=== PATIENT | male | born 1935 | race Caucasian/White ===

== ENCOUNTER → 2019-03-05 | Outpatient (CLI) | payer MEDICARE ==
[2019-03-05 10:09] LABS: HEMATOCRIT 34.7 % (37.9-51.0); HEMOGLOBIN 11.8 g/dL (13.5-17.0); MEAN CORPUSCULAR HEMOGLOBIN 31.5 pg (27.0-33.4); MEAN CORPUSCULAR HGB CONC 33.9 g/dL (32.0-36.0); MEAN CORPUSCULAR VOLUME 93 fl (80-97); PLATELET COUNT 219 10^3/uL (150-450); RED BLOOD COUNT 3.74 10^6/uL (4.35-5.55); RED CELL DISTRIBUTION WIDTH 14.1 % (11.5-14.0); WHITE BLOOD COUNT 6.8 10^3/uL (4.0-10.5)
[2019-03-05 10:10] LABS: APPEARANCE,URINE CLEAR; BILIRUBIN,URINE NEGATIVE (NEGATIVE); COLOR,URINE YELLOW; GLUCOSE, URINE NEGATIVE (NEGATIVE); KETONES,URINE NEGATIVE (NEGATIVE); LEUKOCYTE ESTERASE,URINE NEGATIVE (NEGATIVE); NITRITE,URINE NEGATIVE (NEGATIVE); PROTEIN,URINE NEGATIVE (NEGATIVE); URINE SPECIFIC GRAVITY 1.013; UROBILINOGEN,URINE NEGATIVE mg/dL (<2.0)
[2019-03-05 10:34] LABS: ANION GAP 6 (5-19); BLOOD UREA NITROGEN 21 mg/dL (7-20); CALCIUM 9.2 mg/dL (8.4-10.2); CARBON DIOXIDE 28 mmol/L (22-30); CHLORIDE 105 mmol/L (98-107); GLUCOSE 88 mg/dL (75-110); POTASSIUM 4.6 mmol/L (3.6-5.0); SODIUM 138.8 mmol/L (137-145)
== END ==
LOC: OD 09:05
PROVIDERS: ATTEND Physician Assistant Medical
DX: N18.3 Chronic kidney disease, stage 3 (moderate) (principal); D63.1 Anemia in chronic kidney disease
CPT/HCPCS: 36415; 80048; 81001; 85027

== ENCOUNTER 2019-07-15 07:32 | Day surgery (SDC) | payer MEDICARE ==
[~2019-07-15 07:32] MED LIST: DIPHENHYDRAMINE HCL 50 MG/ML VIAL ONE; EPINEPHRINE INJ 1 MG/10 ML DISP.SYRIN ONE; FENTANYL CITRATE INJ/PF 100 MCG/2 ML AMPUL ONE; FLUMAZENIL INJ 0.5 MG/5 ML VIAL ONE; GLUCAGON,HUMAN RECOMB 1 MG INJ ONE; MIDAZOLAM 2 MG/2 ML INJ ONE; NALOXONE HCL INJ/PF 0.4 MG/1 ML SDV ONE; ONDANSETRON HCL INJ/PF 4 MG/2 ML SDV ONE
--- NOTE | 2019-07-15 08:17 | Operative Report ---
Operative Report DATE OF SURGERY: 07/15/19 Operative Report: The risks benefits and alternatives of the procedure explained to the patient in detail and informed consent is obtained.A GIF Olympus video scope was inserted into the patient's mouth and hypopharynx, the esophagus is identified intubated and insufflated ,the scope was then advanced through the esophagus stomach and duodenum, retroflexion maneuver is done, the esophagus stomach and first and second portions of the duodenum examined. PREOPERATIVE DIAGNOSIS: Dysphagia POSTOPERATIVE DIAGNOSIS: Esophagitis versus Prakash's status post biopsy. Breakage for mild Schatzki's ring. Gastritis status post biopsy. Duodenitis OPERATION: EGD with biopsy SURGEON: IVÁN RAO ANESTHESIA: LMAC TISSUE REMOVED OR ALTERED: As noted above. COMPLICATIONS: None. ESTIMATED BLOOD LOSS: None. INTRAOPERATIVE FINDINGS: As noted above. PROCEDURE: Patient tolerated the procedure well. No immediate postprocedure complications are noted. Patient is discharged in good condition. Discharge date 07/15/2019 Discharge diet: Regular. Discharge activity: Regular. 2 to 3-week follow-up to discuss findings. Patient is instructed to call the office or proceed to the emergency room should there be any further problems or questions. Wait on the pathology.
[2019-07-15 09:30] VITALS: BP 126/79
== END 2019-07-15 09:20 | disposition home or self-care (01) ==
LOC: END 07:32
PROVIDERS: ATTEND Internal Medicine Gastroenterology
DX: K22.2 Esophageal obstruction (principal); K20.9 Esophagitis, unspecified; K29.50 Unspecified chronic gastritis without bleeding; K29.80 Duodenitis without bleeding; F17.210 Nicotine dependence, cigarettes, uncomplicated
CPT/HCPCS: 43239; 88305 ×2; J2250; J3010; J0171; J1200; J1610; J2310; J2405; J3490

== ENCOUNTER 2019-07-24 19:43 | Emergency (ER) | payer MEDICARE ==
--- NOTE | 2019-07-24 20:59 | ER Document Report ---
ED Medical Screen (RME) - General Chief Complaint: Fall Injury Stated Complaint: FALL-RIB PAIN Time Seen by Provider: 07/24/19 20:43 Primary Care Provider: BILL CAIN PA-C [Primary Care Provider] - Follow up as needed Notes: Healthy 83-year-old male presents the emergency department after a fall down 3 steps at home this morning. Patient states that he missed the first step and bounced down the remaining steps on his left side. Patient states that he tried to take an Aleve for it with no relief. Patient states that he could not tolerate the pain anymore so he decided to seek emergency care. Patient denies striking his head or losing consciousness. He is not on anticoagulation. Patient is chiefly complaining about right posterior lower rib pain. Exam: Abdominal exam limited with patient in wheelchair but patient does have tenderness to palpation, abdomen is soft, patient also with acute tenderness to light palpation in the right flank area I have greeted and performed a rapid initial assessment of this patient. A comprehensive ED assessment and evaluation of the patient, analysis of test results and completion of medical decision making process will be conducted by an additional ED providers. TRAVEL OUTSIDE OF THE [place] IN LAST 30 DAYS: No - Related Data Allergies/Adverse Reactions: Penicillins Allergy (Intermediate, Verified 10/28/15 09:58) rash/breathing Past Medical History - Social History Frequency of alcohol use: None Drug Abuse: None - Past Medical History Cardiac Medical History: Denies: Hx Coronary Artery Disease, Hx Heart Attack, Hx Hypertension Pulmonary Medical History: Reports: Hx COPD - PATIENT STATES HE HASNT BEEN DIAGNOSED Denies: Hx Asthma, Hx Bronchitis, Hx Pneumonia Neurological Medical History: Denies: Hx Cerebrovascular Accident, Hx Seizures Malignancy Medical History: Reports Hx Skin Cancer Musculoskeltal Medical History: Denies Hx Arthritis Past Surgical History: Reports: Hx Appendectomy, Hx Oral Surgery - Oral cancer. Denies: Hx Pacemaker - Immunizations Hx Diphtheria, Pertussis, Tetanus Vaccination: No Physical Exam - Vital signs Vitals: Temp Pulse Resp BP Pulse Ox 97.4 F 62 20 129/49 H 99 07/24/19 19:54 07/24/19 19:54 07/24/19 19:54 07/24/19 19:54 07/24/19 19:54 Course - Vital Signs Vital signs: Temp Pulse Resp BP Pulse Ox 97.4 F 62 20 129/49 H 99 07/24/19 19:54 07/24/19 19:54 07/24/19 19:54 07/24/19 19:54 07/24/19 19:54 Doctor's Discharge - Discharge Referrals: BILL CAIN PA-C [Primary Care Provider] - Follow up as needed
[2019-07-24 21:39] LABS: ABSOLUTE BASOPHILS # (AUTO) 0.1 10^3/uL (0.0-0.2); ABSOLUTE EOSINOPHILS # (AUTO) 0.2 10^3/uL (0.0-0.6); ABSOLUTE LYMPHOCYTES (AUTO) 1.8 10^3/uL (0.5-4.7); ABSOLUTE MONOCYTES (AUTO) 0.7 10^3/uL (0.1-1.4); ABSOLUTE NEUT (AUTO) 4.2 10^3/uL (1.7-8.2); HEMATOCRIT 33.7 % (37.9-51.0); HEMOGLOBIN 11.3 g/dL (13.5-17.0); LYMPHOCYTES % (AUTO) 25.8 % (13-45); MEAN CORPUSCULAR HEMOGLOBIN 30.8 pg (27.0-33.4); MEAN CORPUSCULAR HGB CONC 33.6 g/dL (32.0-36.0); MEAN CORPUSCULAR VOLUME 92 fl (80-97); MONOCYTES % (AUTO) 9.9 % (3-13); PLATELET COUNT 227 10^3/uL (150-450); RED BLOOD COUNT 3.67 10^6/uL (4.35-5.55); RED CELL DISTRIBUTION WIDTH 14.7 % (11.5-14.0); SEGMENTED NEUTROPHILS % (AUTO) 60.3 % (42-78); TOTAL CELLS COUNTED % (AUTO) 100 %; WHITE BLOOD COUNT 6.9 10^3/uL (4.0-10.5)
[2019-07-24 21:51] LABS: ALBUMIN 3.5 g/dL (3.5-5.0); ALKALINE PHOSPHATASE 66 U/L (38-126); ANION GAP 9 (5-19); ASPARTATE AMINO TRANSFERASE 14 U/L (17-59); BILIRUBIN,DIRECT 0.3 mg/dL (0.0-0.4); BILIRUBIN,TOTAL 0.4 mg/dL (0.2-1.3); BLOOD UREA NITROGEN 31 mg/dL (7-20); CARBON DIOXIDE 25 mmol/L (22-30); CHLORIDE 104 mmol/L (98-107); GLUCOSE 95 mg/dL (75-110); POTASSIUM 4.9 mmol/L (3.6-5.0); TOTAL PROTEIN 6.7 g/dL (6.3-8.2)
[2019-07-24] MEDS ORDERED: HYDROCODONE/ACETAMINOPHEN 5-325 MG TABLET PO ONE (23:07)
--- NOTE | 2019-07-24 23:49 | RADIOLOGY REPORT (SQ) ---
EXAM DESCRIPTION: CT CHEST WITHOUT IV CONTRAST COMPLETED DATE/TME: 07/24/2019 23:05 CLINICAL HISTORY: 83 years, Male, Fall/trauma COMPARISON: 10/24/2015 CT TECHNIQUE: 322 Images stored on PACS. All CT scanners at this facility use dose modulation, iterative reconstruction, and/or weight based dosing when appropriate to reduce radiation dose to as low as reasonably achievable (ALARA). [facility]: Dose Right [facility]: CareDose [facility]: Dose Right [facility]: Teradose 4D [facility]: [employer] LIMITATIONS: None. FINDINGS: Evaluation of the mediastinum and hilum is limited due to lack of IV contrast. No convincing evidence for mediastinal or hilar adenopathy. Nonenlarged mediastinal lymph nodes. Minimal coronary artery catheterization. The heart and pericardium are otherwise unremarkable. Limited evaluation of the upper abdomen shows partially exophytic left renal cysts. Postcholecystectomy changes. Osseous structures of the thorax are grossly intact with attention given to the right ribs. No pneumothorax. The airways are patent. Minimal reticulonodular changes and minor bronchial wall thickening in the lung bases bilaterally suggesting small airway inflammation/infection. This appears unchanged. IMPRESSION: Reticulonodular changes in the lung bases bilaterally suggesting small airway inflammation/infection. Findings are chronic and were present previously. TECHNICAL DOCUMENTATION: Quality ID # 436: Final reports with documentation of one or more dose reduction techniques (e.g., Automated exposure control, adjustment of the mA and/or kV according to patient size, use of iterative reconstruction technique) copyright 2011 [employer]- All Rights Reserved
--- NOTE | 2019-07-25 01:56 | ER Document Report ---
ED Fall - General Chief Complaint: Fall Injury Stated Complaint: FALL-RIB PAIN Time Seen by Provider: 07/24/19 20:43 Primary Care Provider: BILL CAIN PA-C [Primary Care Provider] - Follow up as needed Mode of Arrival: Ambulatory Information source: Patient Notes: This 83-year-old male presents to the emergency department with a history of a fall at home earlier today. He complains of pain in the left rib cage. He denies head injury or other associated injuries. He is alert and talkative and in no acute distress. TRAVEL OUTSIDE OF THE [place] IN LAST 30 DAYS: No - Related data Allergies/Adverse Reactions: Penicillins Allergy (Intermediate, Verified 10/28/15 09:58) rash/breathing Past Medical History - Social History Smoking Status: Current Every Day Smoker Frequency of alcohol use: None Drug Abuse: None Family History: None Patient has suicidal ideation: No Patient has homicidal ideation: No - Past Medical History Cardiac Medical History: Denies: Hx Coronary Artery Disease, Hx Heart Attack, Hx Hypertension Pulmonary Medical History: Reports: Hx COPD - PATIENT STATES HE HASNT BEEN DIAGNOSED Denies: Hx Asthma, Hx Bronchitis, Hx Pneumonia Neurological Medical History: Denies: Hx Cerebrovascular Accident, Hx Seizures Malignancy Medical History: Reports Hx Skin Cancer Musculoskeletal Medical History: Denies Hx Arthritis Past Surgical History: Reports: Hx Appendectomy, Hx Oral Surgery - Oral cancer. Denies: Hx Pacemaker - Immunizations Hx Diphtheria, Pertussis, Tetanus Vaccination: No Review of Systems - Review of Systems Notes: REVIEW OF SYSTEMS GENERAL: Negative for any nausea, vomiting, fevers, chills, or weight loss. NEUROLOGIC: Negative for any blurry vision, blind spots, double vision, facial asymmetry, dysphagia, dysarthria, hemiparesis, hemisensory deficits, vertigo, ataxia. HEENT: Negative for any head trauma, neck trauma, neck stiffness, photophobia, phonophobia, sinusitis, rhinitis. CARDIAC: Negative for any chest pain, dyspnea on exertion, paroxysmal nocturnal dyspnea, peripheral edema. PULMONARY: +rt chest wall tenderness GASTROINTESTINAL: Negative for any abdominal pain, nausea, vomiting, bright red blood per rectum, melena. GENITOURINARY: Negative for any dysuria, hematuria, incontinence. INTEGUMENTARY: Negative for any rashes, cuts, insect bites. RHEUMATOLOGIC: Negative for any joint pains, photosensitive rashes, history of vasculitis or kidney problems. HEMATOLOGIC: Negative for any abnormal bruising, frequent infections or bleeding. Physical Exam - Vital signs Vitals: Temp Pulse Resp BP Pulse Ox 97.4 F 62 20 129/49 H 99 07/24/19 19:54 07/24/19 19:54 07/24/19 19:54 07/24/19 19:54 07/24/19 19:54 - Notes Notes: Reviewed vital signs and nursing note as charted by RN. CONSTITUTIONAL: Alert and responsive frail elderly male in no acute distress HEAD: Normocephalic; atraumatic; No swelling EYES: PERRL; Conjunctivae clear, no drainage; EOMI ENT: External ears without lesions; External auditory canal is patent; TMs without erythema, landmarks clear and well visualized; no rhinorrhea; Pharynx without erythema or lesions, no tonsillar hypertrophy, airway patent, mucous membranes pink and moist NECK: Supple, no cervical lymphadenopathy, no masses CARD: Regular rate and rhythm; no murmurs, no rubs, no gallops, capillary refill < 2 seconds, symmetric pulses RESP: Respiratory rate and effort are normal. Tenderness at the right lateral rib cage, no crepitus, no step-off, good air movement l flaring, no accessory muscle use. The lungs are clear to auscultation bilaterally, no wheezing, no rales, no rhonchi. ABD/GI: Normal bowel sounds; non-distended; soft, non-tender, no rebound, no guarding, no palpable organomegaly EXT: Normal ROM in all joints; non-tender to palpation; no effusions, no edema SKIN: Normal color for age and race; warm; dry; good turgor; no acute lesions noted NEURO: GCS 15, no facial asymmetry; Moves all extremities equally; Motor and sensory function intact Course - Re-evaluation Re-evalutation: Differential diagnosis: Soft tissue contusion, rib cage contusion, fractured ribs, pneumothorax. 07/25/19 02:05 Patient is doing much better after dose pain medication, CT scan did not reveal a fracture or pneumothorax. I explained to him that he may have a contusion to the rib cage and will treat with Biofreeze, Tylenol, ibuprofen. He will be given a prescription for tramadol 50 mg, 10 tablets have asked him to use them sparingly. He will follow-up with his primary care doctor if needed. The patient and his significant other are in agreement with this plan. 07/25/19 02:06 - Vital Signs Vital signs: Temp Pulse Resp BP Pulse Ox 97.4 F 62 20 129/49 H 99 07/24/19 19:54 07/24/19 19:54 07/24/19 19:54 07/24/19 19:54 07/24/19 19:54 - Laboratory Result Diagrams: 07/24/19 21:15 07/24/19 21:15 Laboratory results interpreted by me: 07/24/19 07/24/19 21:15 21:15 RBC 3.67 L Hgb 11.3 L Hct 33.7 L RDW 14.7 H BUN 31 H Creatinine 1.66 H Est GFR ( Amer) 48 L Est GFR (MDRD) Non-Af 40 L AST 14 L 07/25/19 02:05 I have reviewed laboratory data and used this information and the treatment decisions regarding the patient. - Diagnostic Test Radiology reviewed: Image reviewed, Reports reviewed Radiology results interpreted by me: 07/25/19 02:07 CT scan of the chest: No pneumothorax, no fracture rib. Discharge - Discharge Clinical Impression: Contusion of chest wall with intact skin, Fall Condition: Good Disposition: HOME, SELF-CARE Instructions: Rib Contusion ([facility]) Additional Instructions: Use Biofreeze, Tylenol, and or ibuprofen for pain management. Follow-up with your primary care doctor on Saturday if needed. Prescriptions: Tramadol HCl [Ultram 50 mg Tablet] 50 mg PO Q4HP PRN #10 tab PRN Reason: Referrals: BILL CAIN PA-C [Primary Care Provider] - Follow up as needed
[2019-07-25 02:25] VITALS: BP 128/54
== END 2019-07-25 02:29 | disposition home or self-care (01) ==
LOC: ER 19:43
DX: S20.219A Contusion of unspecified front wall of thorax, initial encounter (principal); R07.81 Pleurodynia; W10.9XXA Fall (on) (from) unspecified stairs and steps, initial encounter; Y92.009 Unspecified place in unspecified non-institutional (private) residence as the place of occurrence of the external cause; F17.200 Nicotine dependence, unspecified, uncomplicated; Z88.0 Allergy status to penicillin
CPT/HCPCS: 36415; 85025; 80053; 71250; A9270; 99284

== ENCOUNTER 2020-07-13 10:19 | Inpatient (IN) | payer MEDICARE, MEDICAID ==
[2020-07-13] MEDS ORDERED: NORMAL SALINE 1000 ML 1,000 ML IV ONE (11:39)
[2020-07-13] MEDS ORDERED: MORPHINE SULFATE 10 MG/ML INJ IV ONE (11:39)
[2020-07-13] MEDS ORDERED: ONDANSETRON HCL INJ/PF 4 MG/2 ML SDV IV ONE (11:39)
--- NOTE | 2020-07-13 11:48 | ER Document Report ---
ED General - General Chief Complaint: Upper Abdominal Pain Stated Complaint: STOMACH PAIN Time Seen by Provider: 07/13/20 10:44 Primary Care Provider: SONALI PANIAGUA MD [NO LOCAL MD] - Follow up tomorrow Mode of Arrival: Ambulatory Information source: Patient TRAVEL OUTSIDE OF THE [place] IN LAST 30 DAYS: No - HPI Notes: Patient complains of mid abdominal pain that goes to his back. He says been it for 3 days. She is had some nausea but no vomiting. No trouble stools or urine. He states he was referred here by a physician but does not remember the physician's name. Patient denies any fevers. No cough cold sweats or chills. Patient states the pain is constant. With makes better or worse. It is sharp and he has been unable to sleep. - Related Data Allergies/Adverse Reactions: Penicillins Allergy (Intermediate, Verified 07/13/20 10:45) rash/breathing Home Medications: denies Past Medical History - General Information source: Patient - Social History Smoking Status: Current Every Day Smoker Chew tobacco use (# tins/day): No Frequency of alcohol use: Occasional Drug Abuse: None Family History: None Patient has homicidal ideation: No - Past Medical History Cardiac Medical History: Denies: Hx Coronary Artery Disease, Hx Heart Attack, Hx Hypertension Pulmonary Medical History: Reports: Hx COPD - PATIENT STATES HE HASNT BEEN DIAGNOSED Denies: Hx Asthma, Hx Bronchitis, Hx Pneumonia Neurological Medical History: Denies: Hx Cerebrovascular Accident, Hx Seizures Malignancy Medical History: Reports Hx Skin Cancer Musculoskeletal Medical History: Denies Hx Arthritis Past Surgical History: Reports: Hx Appendectomy, Hx Oral Surgery - Oral cancer. Denies: Hx Pacemaker - Immunizations Hx Diphtheria, Pertussis, Tetanus Vaccination: No Review of Systems - Review of Systems Constitutional: denies: Chills, Fever Cardiovascular: denies: Chest pain, Palpitations Respiratory: denies: Cough, Short of breath -: Yes All other systems reviewed and negative Physical Exam - Vital signs Vitals: Temp Pulse Resp BP Pulse Ox 98.4 F 65 16 151/59 H 98 07/13/20 10:32 07/13/20 10:32 07/13/20 10:32 07/13/20 10:32 07/13/20 10:32 Interpretation: Normal - General General appearance: Appears well, Alert - HEENT Head: Normocephalic, Atraumatic Eyes: Normal Pupils: PERRL - Respiratory Respiratory status: No respiratory distress Chest status: Nontender Breath sounds: Normal Chest palpation: Normal - Cardiovascular Rhythm: Regular Heart sounds: Normal auscultation Murmur: No - Abdominal Inspection: Normal Distension: No distension Bowel sounds: Normal Tenderness: Tender - Patient has some mild to moderate tenderness to palpation of the mid abdominal area however there is no identifiable pulsatile mass at this time. Organomegaly: No organomegaly - Back Back: Normal, Nontender - Extremities General upper extremity: Normal inspection, Nontender, Normal color, Normal ROM, Normal temperature General lower extremity: Normal inspection, Nontender, Normal color, Normal ROM, Normal temperature, Normal weight bearing. No: Gina's sign - Neurological Neuro grossly intact: Yes Cognition: Normal Orientation: AAOx4 Kegley Coma Scale Eye Opening: Spontaneous Katty Coma Scale Verbal: Oriented Kegley Coma Scale Motor: Obeys Commands Kegley Coma Scale Total: 15 Speech: Normal Motor strength normal: LUE, RUE, LLE, RLE Sensory: Normal - Psychological Associated symptoms: Normal affect, Normal mood - Skin Skin Temperature: Warm Skin Moisture: Dry Skin Color: Normal Course - Re-evaluation Re-evalutation: 07/13/20 14:44 Patient presents with abdominal pain going to his back. At this time there is no obvious cause. No evidence of cardiac disease. No evidence of aortic disease. He does have a renal mass however this does not seem like a likely cause of his pain. Am unsure what would be causing the patient's pain at this time. He was tender on palpation however CT scan does not reveal evidence of any type of pathology that would account for the pain. Patient at this time is asking if he can leave. His vital signs do appear stable. His labs also appear stable I think at this time the best course for the patient to follow-up as an outpatient with urology. Nurse approached me and said the patient was in the room stating that he should kill himself because all of his children are and his is . He stated that he did have 1 son left. I then went in and talk to the patient he said "that is not what I said" he said that "I am not worth killing". He states that he is not going to hurt himself and that he does not wish to talk to anybody concerning his depression. He states he does not have any plan to hurt himself or anybody else. He states he has just been depressed but does not wish to speak to any type of behavioral health care here. No known history of any type of hallucinations. I did call and talk with the patient's son who said his father has never mentioned anything like this to him and that his father does not have any access to any type of guns or means to hurt himself. He states his father does live by himself but that I should discharge the patient and he will leave right now to meet his father at his house. 07/13/20 15:31 - Vital Signs Vital signs: Temp Pulse Resp BP Pulse Ox 98.4 F 65 14 119/71 100 07/13/20 10:32 07/13/20 10:32 07/13/20 13:08 07/13/20 12:31 07/13/20 13:08 - Laboratory Result Diagrams: 07/13/20 12:00 07/13/20 12:00 Laboratory results interpreted by me: 07/13/20 07/13/20 12:00 12:00 RBC 3.62 L Hgb 11.8 L Hct 34.5 L RDW 14.2 H Sodium 134.0 L BUN 25 H Est GFR (MDRD) Non-Af 59 L - Diagnostic Test Radiology reviewed: Image reviewed, Reports reviewed Discharge - Discharge Clinical Impression: Renal mass of unknown nature Abdominal pain Qualifiers: Abdominal location: periumbilical Qualified Code(s): R10.33 - Periumbilical pain Condition: Stable Disposition: HOME, SELF-CARE Instructions: Abdominal Pain ([facility]) Additional Instructions: Please see a urologist as soon as possible for evaluation of the mass on your kidney Referrals: SONALI PANIAGUA MD [NO LOCAL MD] - Follow up tomorrow
[2020-07-13 12:25] LABS: ABSOLUTE LYMPHOCYTES (AUTO) 1.1 10^3/uL (0.5-4.7); ABSOLUTE MONOCYTES (AUTO) 0.6 10^3/uL (0.1-1.4); ABSOLUTE NEUT (AUTO) 5.6 10^3/uL (1.7-8.2); BASOPHILS % (AUTO) 0.3 % (0-2); EOSINOPHILS % (AUTO) 0.1 % (0-6); HEMATOCRIT 34.5 % (37.9-51.0); HEMOGLOBIN 11.8 g/dL (13.5-17.0); LYMPHOCYTES % (AUTO) 14.7 % (13-45); MEAN CORPUSCULAR HEMOGLOBIN 32.7 pg (27.0-33.4); MEAN CORPUSCULAR HGB CONC 34.3 g/dL (32.0-36.0); MEAN CORPUSCULAR VOLUME 95 fl (80-97); MONOCYTES % (AUTO) 8.1 % (3-13); PLATELET COUNT 210 10^3/uL (150-450); RED BLOOD COUNT 3.62 10^6/uL (4.35-5.55); RED CELL DISTRIBUTION WIDTH 14.2 % (11.5-14.0); SEGMENTED NEUTROPHILS % (AUTO) 76.8 % (42-78); TOTAL CELLS COUNTED % (AUTO) 100 %; WHITE BLOOD COUNT 7.3 10^3/uL (4.0-10.5)
[2020-07-13 12:31] LABS: INTERNATIONAL RATION (INR) 1.08; PARTIAL THROMBOPLASTIN TIME 28.1 SEC (23.5-35.8); PROTHROMBIN TIME 14.2 SEC (11.4-15.4)
[2020-07-13 12:43] LABS: BLOOD UREA NITROGEN 25 mg/dL (7-20); CALCIUM 9.1 mg/dL (8.4-10.2); GLUCOSE 104 mg/dL (75-110)
[2020-07-13 12:44] LABS: ALBUMIN 3.7 g/dL (3.5-5.0); ALKALINE PHOSPHATASE 61 U/L (38-126); ANION GAP 7 (5-19); ASPARTATE AMINO TRANSFERASE 17 U/L (17-59); BILIRUBIN,DIRECT 0.1 mg/dL (0.0-0.4); BILIRUBIN,TOTAL 0.5 mg/dL (0.2-1.3); CARBON DIOXIDE 26 mmol/L (22-30); CHLORIDE 101 mmol/L (98-107); POTASSIUM 4.5 mmol/L (3.6-5.0); TOTAL PROTEIN 6.8 g/dL (6.3-8.2)
[2020-07-13 13:51] LABS: APPEARANCE,URINE CLEAR; BILIRUBIN,URINE NEGATIVE (NEGATIVE); COLOR,URINE YELLOW; GLUCOSE, URINE NEGATIVE (NEGATIVE); KETONES,URINE NEGATIVE (NEGATIVE); LEUKOCYTE ESTERASE,URINE NEGATIVE (NEGATIVE); NITRITE,URINE NEGATIVE (NEGATIVE); PROTEIN,URINE NEGATIVE (NEGATIVE); URINE SPECIFIC GRAVITY 1.018; UROBILINOGEN,URINE NEGATIVE mg/dL (<2.0)
[2020-07-13] MEDS ORDERED: IMIPENEM/CILASTATIN SODIUM INJ 500 MG VIAL IV ONE (15:44)
--- NOTE | 2020-07-13 15:48 | RADIOLOGY REPORT (SQ) ---
EXAM DESCRIPTION: CTA ABDOMEN/PELVIS W WO IMAGES COMPLETED DATE/TIME: 07/13/2020 1:05 pm REASON FOR STUDY: jennifer umbilical abdominal pain radiates to back COMPARISON: CT abdomen pelvis 06/20/2011 TECHNIQUE: CT scan of the abdomen and pelvis performed with intravenous contrast using helical scann ing technique with dynamic intravenous contrast injection. Images reviewed with lung, soft tissue, an d bone windows. Reconstructed coronal and sagittal MPR images reviewed. All images stored on PACS. Advanced 3D imaging as volume rendering, MIPS, SSD performed? yes All CT scanners at this facility use dose modulation, iterative reconstruction, and/or weight based d osing when appropriate to reduce radiation dose to as low as reasonably achievable (ALARA). [facility]: Dose Right [facility]: CareDose [facility]: Dose Right [facility]: Teradose 4D [facility]: [employer] CONTRAST TYPE AND DOSE: 99 mL of IV Omnipaque 350- low osmolar. RENAL FUNCTION: Creatinine 1.1 LIMITATIONS: None. FINDINGS: AORTA AND VESSELS: No aneurysm. No dissection. SMA, celiac without stenosis. At least 50% bilateral renal artery stenosis on coronal images 38-43. On coronal images 27-32, and axial images 42 through 50, there is fluid along the dorsal aspect of th e gastric antrum, and a possible penetrating gastric ulcer. No definite free intraperitoneal air. A djacent pancreatic head is unremarkable. This finding was called to Dr. Dubose in the emergency ro om, 1515 hours 07/13/2020. LUNG BASES: No significant findings. No nodules or infiltrates. LIVER: Normal size. No masses or dilated ducts. SPLEEN: Normal size. No focal lesions. PANCREAS: No masses. No significant calcifications. No adjacent inflammation or peripancreatic fluid collections. Pancreatic duct not dilated. GALLBLADDER: Surgically absent ADRENAL GLANDS: No significant masses or asymmetry. RIGHT KIDNEY AND URETER: 2.7 cm solid enhancing mass along the right lower pole kidney on axial image 60 and coronal image 49. This is worrisome for primary renal cell carcinoma. The tumor vein thromb us. Subcentimeter cysts in the medial upper pole right. No right renal hydronephrosis or stones. N o right ureteral stones LEFT KIDNEY AND URETER: No mass, calculi or urinary tract obstruction. Multiple left renal cortical cysts less than 3 cm size RETROPERITONEUM: No retroperitoneal adenopathy, hemorrhage or masses. BOWEL AND PERITONEAL CAVITY: Possible penetrating gastric antral ulcer. Findings discussed with giovani gency room attending physician. Otherwise, gastrointestinal tract is unremarkable. No bowel obstruction. No free intraperitoneal ai r or fluid. APPENDIX: Surgically absent. ABDOMINAL WALL: No masses. No hernias. BONY STRUCTURES: Chronic 25% upper endplate compression at T12. 3-D IMAGING: Confirms the above findings. OTHER: Preliminary report post right lower pole solid renal mass provided by Dr. Damico IMPRESSION: Possible penetrating gastric antral ulcer with fluid along the lesser curvature stomach serosal surface. Findings called to the emergency room attending. TECHNICAL DOCUMENTATION: JOB ID: [id number] Quality ID # [id number]: Final reports with documentation of one or more dose reduction techniques (e.g., Au tomated exposure control, adjustment of the mA and/or kV according to patient size, use of iterative reconstruction technique) 2010 [employer]- All Rights Reserved Reading location - IP/workstation name: [id number]
[2020-07-13] MEDS ORDERED: NICOTINE 14 MG/24 HR PATCH.TD24 TD ONE (15:50)
[2020-07-13] MEDS ORDERED: PANTOPRAZOLE SODIUM 40 MG VIAL IV ONE (16:20)
--- NOTE | 2020-07-13 18:08 | Progress Note ---
Provider Note Provider Note: Case discussed with Dr. Graham by phone. This 84-year-old male is seen in consultation at the request of Dr. Graham because "he might be complicated". The patient presented with abdominal pain over the past week. Patient's son is at the bedside and reports that the patient has a longstanding history of dyspepsia, for which he is supposed to take "antacid pills" on a regular basis, although the patient admits that he does not adhere to prescribed therapy. The patient's son is made the association that greasy foods seem to be the most consistent trigger. He also adds that the patient has been struggling with dyspepsia for many years. On exam, the patient is afebrile. Vital signs are stable. He is on room air. Abdominal exam is noted for diffuse tenderness with rebound tenderness. No guarding. Initial imaging was interpreted to be negative for acute intra-abdominal pathology; however, question has been raised about the possibility of a perforated ulcer. Plans for repeat imaging with oral contrast noted. There is no indication for ICU admission for this hemodynamically stable patient on room air. I have communicated to Dr. Graham that this patient did not meet ICU criteria at this time.
--- NOTE | 2020-07-13 18:57 | EKG REPORT ---
SEVERITY:- ABNORMAL ECG - SINUS RHYTHM NONSPECIFIC INTRAVENTRICULAR CONDUCTION DELAY : Confirmed by: Tank Kat MD 13-Jul-2020 18:56:22
--- NOTE | 2020-07-13 20:09 | RADIOLOGY REPORT (SQ) ---
EXAM DESCRIPTION: CT ABD/PELVIS ORAL ONLY IMAGES COMPLETED DATE/TIME: 07/13/2020 7:48 pm REASON FOR STUDY: perforated abscess evaluation COMPARISON: CT abdomen pelvis 07/13/2020, 06/20/2011 TECHNIQUE: CT scan of the abdomen and pelvis performed with oral contrast and no intravenous contras t. Images reviewed with lung, soft tissue, and bone windows. Reconstructed coronal and sagittal MPR i mages reviewed. All images stored on PACS. All CT scanners at this facility use dose modulation, iterative reconstruction, and/or weight based d osing when appropriate to reduce radiation dose to as low as reasonably achievable (ALARA). [facility]: Dose Right [facility]: CareDose [facility]: Dose Right [facility]: Teradose 4D [facility]: Le[employer] software RADIATION DOSE: 6.6MGy. LIMITATIONS: None. FINDINGS: Oral contrast was administered through a nasogastric tube. NG tube tip in the stomach. On axial image 25 and coronal image 29, a 1.5 cm air bubble is present along the dorsal aspect of the gastric antrum worrisome for ulcer crater. Adjacent inflammation along the serosal surface of the g astric antrum on axial image 25 no keith extravasation of oral contrast into the lesser sac. No free intraperitoneal air or fluid. No gross bowel obstruction. LOWER CHEST: No significant findings. No nodules or infiltrates. NON-CONTRASTED LIVER, SPLEEN, ADRENALS: Evaluation limited by lack of IV contrast. No identified sign ificant masses. PANCREAS: No masses. No peripancreatic inflammatory changes. GALLBLADDER: Surgically absent. RIGHT KIDNEY AND URETER: 3 cm solid mass right lower pole. No significant calcification. No hydroneph rosis or hydroureter. LEFT KIDNEY AND URETER: No solid masses. No significant calcification. No hydronephrosis or hydrouret er. AORTA AND RETROPERITONEUM: No aneurysm. No retroperitoneal masses or adenopathy. BOWEL AND PERITONEAL CAVITY: As above APPENDIX: Surgically absent PELVIS, BLADDER, AND ABDOMINAL WALL: No abnormal pelvic masses. No abdominal wall hernias. Bladder un remarkable. BONES: Chronic T12 compression deformity. OTHER: No other significant finding. IMPRESSION: Antral ulcer without extravasation of oral contrast TECHNICAL DOCUMENTATION: JOB ID: [id number] Quality ID # [id number]: Final reports with documentation of one or more dose reduction techniques (e.g., Au tomated exposure control, adjustment of the mA and/or kV according to patient size, use of iterative reconstruction technique) 2010 [employer]- All Rights Reserved Reading location - IP/workstation name: [id number]
--- NOTE | 2020-07-13 23:47 | PDOC H&P ---
History of Present Illness Admission Date/PCP: 07/13/20 16:35 Patient complains of: Abdominal pains History of Present Illness: KRISTAN MADRIGAL is a 84 year old male who claims has been having epigastric pains radiating to the back for the past week. Denies any nausea vomiting diarrhea nor constipation fever no chills. He apparently was diagnosed to have gastric ulcer and had upper endoscopy done about a year ago according to her niece that I called on the phone her name is healed the. She had a initial CT scan of the abdomen in the ED which showed a possible posterior gastric ulcer perforation. Repeat CT scan was done this time with p.o. contrast which showed no free extra extravasation of air or fluid from the stomach but appears to have 1-1/2cm antral ulcer. He was emergently admitted prior to h his second CT scan. Past Medical History Cardiac Medical History: Denies: Coronary Artery Disease, Myocardial Infarction, Hypertension Pulmonary Medical History: Reports: Chronic Obstructive Pulmonary Disease (COPD) - PATIENT STATES HE HASNT BEEN DIAGNOSED Denies: Asthma, Bronchitis, Pneumonia Neurological Medical History: Denies: Seizures Malignancy Medical History: Reports: Skin Cancer Musculoskeltal Medical History: Denies: Arthritis Hematology: Denies: Anemia Past Surgical History Past Surgical History: Reports: Appendectomy Denies: Pacemaker Social History Smoking Status: Current Every Day Smoker Electronic Cigarette use?: No Family History Family History: None Parental Family History Reviewed: Yes Children Family History Reviewed: No Sibling(s) Family History Reviewed.: No Medication/Allergy Home Medications: No Home Medications 07/13/20 Allergies/Adverse Reactions: Penicillins Allergy (Intermediate, Verified 07/13/20 10:45) rash/breathing Review of Systems Constitutional: PRESENT: as per HPI Gastrointestinal: PRESENT: abdominal pain - Epigastric pains Physical Exam Vital Signs: Temp Pulse Resp BP Pulse Ox 98.3 F 57 L 19 136/51 H 98 07/13/20 23:16 07/13/20 23:16 07/13/20 23:16 07/13/20 23:16 07/13/20 23:16 Intake & Output 07/12/20 07/13/20 07/14/20 06:59 06:59 06:59 Intake Total 1000 Balance 1000 Weight 76.1 kg General appearance: PRESENT: mild distress Eye exam: PRESENT: conjunctiva pink Mouth exam: PRESENT: moist Neck exam: PRESENT: full ROM Respiratory exam: PRESENT: clear to auscultation omer Cardiovascular exam: PRESENT: RRR Pulses: PRESENT: normal radial pulses Vascular exam: PRESENT: normal capillary refill GI/Abdominal exam: PRESENT: soft, tenderness - Epigastric area no rebound tenderness Rectal exam: PRESENT: deferred Extremities exam: PRESENT: full ROM Musculoskeletal exam: PRESENT: full ROM Neurological exam: PRESENT: alert, oriented to person, oriented to place, oriented to time, oriented to situation Psychiatric exam: PRESENT: appropriate affect Skin exam: PRESENT: normal color, warm Results Laboratory Results: 07/13/20 12:00 07/13/20 12:00 07/13/20 07/13/20 07/13/20 12:00 12:00 13:31 WBC 7.3 RBC 3.62 L Hgb 11.8 L Hct 34.5 L MCV 95 MCH 32.7 MCHC 34.3 RDW 14.2 H Plt Count 210 Seg Neutrophils % 76.8 Sodium 134.0 L Potassium 4.5 Chloride 101 Carbon Dioxide 26 Anion Gap 7 BUN 25 H Creatinine 1.18 Est GFR ( Amer) > 60 Glucose 104 Calcium 9.1 Total Bilirubin 0.5 AST 17 Alkaline Phosphatase 61 Total Protein 6.8 Albumin 3.7 Lipase 146.2 Urine Color YELLOW Urine Appearance CLEAR Urine pH 5.0 Ur Specific [place] 1.018 Urine Protein NEGATIVE Urine Glucose (UA) NEGATIVE Urine Ketones NEGATIVE Urine Blood NEGATIVE Urine Nitrite NEGATIVE Ur Leukocyte Esterase NEGATIVE Urine WBC (Auto) 0 Impressions: Abdomen/Pelvis CTA 07/13/20 10:49 IMPRESSION: Possible penetrating gastric antral ulcer with fluid along the lesser curvature stomach serosal surface. Findings called to the emergency room attending. Abdomen/Pelvis CT 07/13/20 16:16 IMPRESSION: Antral ulcer without extravasation of oral contrast Assessment & Plan - Diagnosis (1) Ulcer of antrum of stomach Is this a current diagnosis for this admission?: Yes (2) Abdominal pain Qualifiers: Abdominal location: periumbilical Qualified Code(s): R10.33 - Periumbilical pain Is this a current diagnosis for this admission?: Yes (3) Renal mass of unknown nature Is this a current diagnosis for this admission?: Yes - Time Time Spent: 30 to 50 Minutes Anticipated Discharge Disposition: Home, Self Care Anticipated Discharge Timeframe: within 24 hours - Inpatient Certification Medical Necessity: Need For IV Fluids, Need for Pain Control, Risk of Complication if Not Cared For in Hospital - Plan Summary Plan Summary: 84-year-old male diagnosed to have an ulcer at the antrum of the stomach. Ca espitia noted to have a possible perforation of gastric ulcer but on the repeat CT scan with p.o. contrast showed no extravasation of air or fluid but has a 1.5cm ulcer in the antrum of the stomach. There was also incidental finding of possible right kidney tumor. The niece Colleen was informed of patient's condition. She tells me that the patient does not want to go to any doctor though he was seen about a year ago for a gastric ulcer and had an upper endoscopy and upper GI series. However, patient is not compliant and appears to be not taking his medications regularly. He has some mild tenderness at the epigastric area. Plan: Continue with IV Protonix. Possible discharge in a.m. and make sure patient takes his antiulcer medications regularly. Will need outpatient EGD.
[2020-07-14] MEDS ORDERED: PANTOPRAZOLE SODIUM 40 MG VIAL IV ONE (00:45)
[2020-07-14] MEDS ORDERED: GLUCAGON,HUMAN RECOMB 1 MG INJ SUBCUT PRN (06:07)
[2020-07-14] MEDS ORDERED: DEXTROSE 40% GEL 15 GM TUBE PO PRN ×2 (06:07)
[2020-07-14] MEDS ORDERED: DEXTROSE 50%-WATER 25 GM/50 ML DISP.SYRIN IV PRN ×2 (06:07)
[2020-07-14] MEDS ORDERED: INFLUENZA QUAD (6MOS+) 2020-21 VAC 0.5 ML SYR IM ONE (08:00)
--- NOTE | 2020-07-14 10:19 | PDOC PROGRESS REPORT ---
Subjective Progress Note for:: 07/14/20 Reason For Visit: ABDOMINAL PAIN, RENAL MASS OF UNKNOWN Patient states he is having less abdominal pain. He denies history of ulcer disease. He smokes 2 packs of cigarettes per day. He has had oral pharyngeal cancer, with resection and free flap. Physical Exam Vital Signs: Temp Pulse Resp BP Pulse Ox 97.8 F 61 16 133/59 H 97 07/14/20 07:54 07/14/20 07:54 07/14/20 07:54 07/14/20 07:54 07/14/20 07:54 Intake & Output 07/13/20 07/14/20 07/15/20 06:59 06:59 06:59 Intake Total 1000 Output Total 125 Balance 875 Weight 79.4 kg General appearance: PRESENT: no acute distress, other - No mask on GI/Abdominal exam: PRESENT: other - The abdomen is examined, soft, nontender no peritoneal signs no rigidity Results Laboratory Results: 07/13/20 12:00 07/13/20 12:00 07/13/20 07/13/20 07/13/20 12:00 12:00 13:31 WBC 7.3 RBC 3.62 L Hgb 11.8 L Hct 34.5 L MCV 95 MCH 32.7 MCHC 34.3 RDW 14.2 H Plt Count 210 Seg Neutrophils % 76.8 Sodium 134.0 L Potassium 4.5 Chloride 101 Carbon Dioxide 26 Anion Gap 7 BUN 25 H Creatinine 1.18 Est GFR ( Amer) > 60 Glucose 104 Calcium 9.1 Total Bilirubin 0.5 AST 17 Alkaline Phosphatase 61 Total Protein 6.8 Albumin 3.7 Lipase 146.2 Urine Color YELLOW Urine Appearance CLEAR Urine pH 5.0 Ur Specific [place] 1.018 Urine Protein NEGATIVE Urine Glucose (UA) NEGATIVE Urine Ketones NEGATIVE Urine Blood NEGATIVE Urine Nitrite NEGATIVE Ur Leukocyte Esterase NEGATIVE Urine WBC (Auto) 0 Impressions: Abdomen/Pelvis CTA 07/13/20 10:49 IMPRESSION: Possible penetrating gastric antral ulcer with fluid along the lesser curvature stomach serosal surface. Findings called to the emergency room attending. Abdomen/Pelvis CT 07/13/20 16:16 IMPRESSION: Antral ulcer without extravasation of oral contrast Assessment & Plan - Diagnosis (1) Ulcer of antrum of stomach Is this a current diagnosis for this admission?: Yes Plan: Impression: Acute abdominal pain, resolving, CT scan findings suggestive of antral ulcer, rule out malignancy. Patient has no evidence of peritonitis, or sepsis, or gastric outlet obstruction Commendations: 1. We will set patient up for upper endoscopy, possible biopsies, possible polypectomy, [facility] main operating room, LMAC anesthesia. 2. Patient's Covid rapid test is negative (2) History of malignant neoplasm of oral cavity Is this a current diagnosis for this admission?: Yes (3) Heavy cigarette smoker (20-39 per day) Is this a current diagnosis for this admission?: Yes - Time Critical Time spent with patient: Less than 15 minutes Anticipated Discharge Disposition: Home, Self Care Anticipated Discharge Timeframe: within 48 hours
[2020-07-14] MEDS ORDERED: PANTOPRAZOLE SODIUM 40 MG VIAL IV SCH (12:00)
[2020-07-14] MEDS ORDERED: PROPOFOL INJ 200 MG/20 ML VIAL IV ONE (12:43)
--- NOTE | 2020-07-14 16:12 | Operative Report ---
Operative Report DATE OF SURGERY: 07/14/20 PREOPERATIVE DIAGNOSIS: 1. Gastric antral ulcer with microperforation. 2. CO PD. 3. Heavy smoker POSTOPERATIVE DIAGNOSIS: Same with. 1. Moderate hiatal hernia. 2. Chronic distal esophagitis. 3. Apical-posterior pyloric channel ulcer. 4. Multiple proximal gastric ulcers OPERATION: 1. Esophagogastroduodenoscopy. 2. Cold forceps biopsy distal esophagus, gastric antrum and pyloric channel ulcer SURGEON: PAZ YANEZ ANESTHESIA: LMAC TISSUE REMOVED OR ALTERED: Biopsies as described above COMPLICATIONS: None INTRAOPERATIVE FINDINGS: See below PROCEDURE: Patient was taken to the preop holding area to the main operating room where LMAC anesthesia was induced. Oral mouthpiece inserted, surgical timeout and plan conducted. The flexible adult upper endoscope was advanced to the oropharynx uneventfully down the esophagus through the stomach and into the duodenum. First and second portions of the duodenum were normal. There is no evidence of bleeding, stricture, polyp. The scope was brought back through and into the pyloric channel on several occasions. There was a chronic ulcer with acute fibrinous changes along the apical posterior side of the pyloric channel with no evidence of active bleeding, or heaped up margin. There was no evidence of pyloric stenosis. A cold forceps biopsy was obtained of the ulcer rim after photographing the ulcer. The scope was brought back through the pylorus into the stomach. There were multiple 6-8 small superficial ulcers of the proximal greater curvature of the stomach. Photos taken. There was evidence of a 2 to 3 cm hiatal hernia and photos taken. Scope retroflexed and no evidence of pathology in the gastric cardia. A random biopsy of the gastric antrum was chosen for EILEEN and histo analysis. The scope was brought back through the GE junction which was approximately 40 cm from the incisor. There were chronic changes of the distal esophagus with marked irregularity of the Z-line consistent with chronic distal esophagitis. A biopsy of the Z-line was performed with the cold forceps device. Bleeding was minimal. The scope was drawn from the patient's esophagus. There is no evidence of esophageal varices or any other esophageal pathology. The scope was brought back through the hypopharynx and no additional pathology seen. The scope was removed from the patient's oropharynx. He tolerated the procedure well and taken to recovery room in stable condition. Plan: 1. Start diet as tolerated 2. Continue IV Protonix, and Ancef 1 g IV every 8 hours to cover patient's low- grade intra-abdominal contamination small micro per if 3. Anticipate discharge home tomorrow patient continues to improve. 4. I attempted to call patient's son but there was no answer.
[2020-07-14 16:38] VITALS: BP 133/60
[2020-07-14] MEDS ORDERED: CEFAZOLIN 1 GM/D5W RTU 1 GM/50 ML RTUPB IV SCH (18:00)
== END 2020-07-14 16:57 | disposition left against medical advice (07) | DRG 384 ==
LOC: ER 10:19 → EH 16:35 → 3W 21:44
PROVIDERS: ATTEND Surgery
PROC: 0DB78ZX Excision of Stomach, Pylorus, Via Natural or Artificial Opening Endoscopic, Diagnostic (ICD-10-PCS; principal; 2020-07-14 14:30)
DX: K25.7 Chronic gastric ulcer without hemorrhage or perforation (principal); K44.9 Diaphragmatic hernia without obstruction or gangrene; K20.90 Esophagitis, unspecified without bleeding; N28.89 Other specified disorders of kidney and ureter; J44.9 Chronic obstructive pulmonary disease, unspecified; F17.210 Nicotine dependence, cigarettes, uncomplicated; Z88.0 Allergy status to penicillin; Z90.49 Acquired absence of other specified parts of digestive tract; Z85.828 Personal history of other malignant neoplasm of skin; Z85.819 Personal history of malignant neoplasm of unspecified site of lip, oral cavity, and pharynx; Z20.828 Contact with and (suspected) exposure to other viral communicable diseases
CPT/HCPCS: 36415; 43239; 731; 74174; 74176; 80053; 81001; 83690; 85025; 85610; 85730; 87040; 87077; 87086; 87150; 87186; 87635; 88305; 88342; 93005; 93010; 96361; 96374; 96375; 99285; C9113; C9803; J0743; J2270; J2405; J2704; J7030